=== PATIENT | female | born 1995 | race Caucasian/White ===

== ENCOUNTER 2021-03-06 18:52 | Emergency (ER) | payer MEDICAID, SELFPAY ==
--- NOTE | ~2021-03-06 | CT_ITS ---
EXAMINATION: CT ABDOMEN AND PELVIS WITHOUT CONTRAST CLINICAL INFORMATION: flank pain . COMPARISON: No pertinent prior studies are available for comparison. TECHNIQUE: Multidetector volumetric imaging was performed from the superior aspect of the liver through the pubic symphysis without contrast per renal stone protocol. Sagittal and coronal reformatted images were obtained on the technologist workstation. This CT examination was performed using dose optimization techniques as appropriate, variously including the following: *Automated exposure control *Adjustment of mA and/or kV according to patient size (this includes techniques or standardized protocols for targeted exams where dose is matched to indication/reason for exam; i.e. extremities or head) *Use of iterative reconstruction technique DLP: 514 mGy-cm. FINDINGS: LUNG BASES: The visualized lung bases are unremarkable. LIVER, GALLBLADDER, BILIARY TREE: The non-contrast liver is normal in size, shape, and attenuation. No focal hepatic lesion or biliary ductal dilatation is present. The gallbladder is unremarkable with no evidence of radiopaque gallstones, gallbladder wall thickening, or obvious pericholecystic inflammatory changes. PANCREAS: Unremarkable. SPLEEN: Unremarkable. ADRENAL GLANDS: Unremarkable. KIDNEYS AND URETERS: The kidneys are normal in size, shape, and attenuation. No hydronephrosis, hydroureter, or calculi seen. No perinephric stranding. BLADDER: Unremarkable. GASTROINTESTINAL TRACT: The small and large bowel are unremarkable. The appendix is nonvisualized and may be surgically absent. No focal inflammatory changes seen in the right lower quadrant. ABDOMINAL WALL: No significant hernia is appreciated. LYMPHOVASCULAR STRUCTURES: No lymphadenopathy. The aorta is unremarkable.. PELVIC VISCERA: Unremarkable. OSSEUS STRUCTURES: Unremarkable. CT/CT abdomen pelvis wo con IMPRESSION: No acute intra-abdominal process seen.
[2021-03-06 19:17] VITALS: BP 130/88; PULSE 73; RESP 18; TEMP 36.6; O2SAT 100; BMI 29.2
[2021-03-06 19:41] LABS: Basophils Absolute Auto 0.1 X10*3/uL (0.0-0.2); Basophils Percent Auto 0.9 % (0-2); Eosinophils Absolute Auto 0.2 X10*3/uL (0.0-0.4); Eosinophils Percent Auto 1.7 % (0-4); Hematocrit 40.5 % (37-47); Hemoglobin 13.6 g/dl (12.0-16.0); Imm Gran Abs Auto 0.06 X10*3/uL (0.00-0.03); Imm Gran Pct Auto 0.7 % (0.0-0.4); Lymphocytes Absolute Auto 3.3 X10*3/uL (1.2-4.9); Lymphocytes Percent Auto 37.6 % (20-40); MANUAL DIFF FLAG NO; Mean Corpuscular HGB Conc 33.6 g/dl (31.0-35.0); Mean Corpuscular Hemoglobin 30.8 pg (27.0-33.0); Mean Corpuscular Volume 91.8 fL (80-98); Mean Platelet Volume 8.7 fL (9.4-12.3); Monocytes Absolute Auto 0.7 X10*3/uL (0.1-1.2); Monocytes Percent Auto 8.1 % (2-11); Neutrophils Absolute Auto 4.4 X10*3/uL (2.0-8.3); Platelet Count 350 X10*3/uL (160-400); Red Blood Count 4.41 X10*6/uL (4.20-5.50); Red Cell Distribution Width 13.2 % (11.0-16.0); White Blood Count 8.7 X10*3/uL (4.8-10.8)
[2021-03-06 19:44] LABS: Glucose Urine UA NEG (NEG); Leukocyte Esterase Urine NEG (NEG); Nitrite Urine NEG (NEG); Specific Gravity - Urine >= 1.030 (1.005-1.025); Urine Blood NEG (NEG); Urine Ketones NEG (NEG); Urine Protein NEG (NEG-TRACE)
[2021-03-06 19:50] LABS: Appearance Urine CLEAR; Color Urine YELLOW
[2021-03-06 19:51] LABS: UPreg QC Valid YES; Urine Pregnancy NEGATIVE (NEGATIVE)
[2021-03-06 20:15] LABS: Anion Gap 13 (12-20); Blood Urea Nitrogen 9 mg/dL (9-16); Calcium 9.6 mg/dL (8.4-10.2); Carbon Dioxide 25 mmol/L (22-29); Chloride 102 mmol/L (96-108); Estimated Glomerular Filt Rate > 60; Glucose Random 91 mg/dL (60-115); Lipase 11 U/L (8-78); Potassium 3.7 mmol/L (3.3-5.1); Sodium 136 mmol/L (135-145)
--- NOTE | 2021-03-06 22:03 | ED_ITS ---
HPI - Abdominal Pain General Chief Complaint: Abdominal Pain Stated Complaint: back pain Source: patient Mode of arrival: ambulatory Limitations: no limitations History of Present Illness HPI narrative: 25-year-old female with no significant past medical history presents with 2 weeks of lower back pain, started on the right side and now is in the right lower quadrant and suprapubic area. She does state to have pain on intercourse but does not have any concerns regarding STI infections. She denies fevers, chills, nausea, vomiting, chest pain or pressure, palpitations, shortness of breath, shortness breath on exertion, dysuria, hematuria, diarrhea, constipation, melena, hematochezia, abnormal vaginal bleeding, assault, trauma and any other concerning symptoms. MD elicited complaint: abdominal pain and flank pain Pertinent past history: none Onset (ago): week(s) Pain Consistency: constant Location: RLQ, R flank and suprapubic Severity: moderate Pain scale (0-10): 7 Quality: cramping and aching Radiation: back Migration to: no migration Exacerbating factors: movement and other ([place]) Relieving factors: nothing Associated symptoms: denies other symptoms Related Data Patient : No Previous Rx's Medication Instructions Recorded fluconazole [Diflucan] 150 mg PO Q3D #2 tab 03/07/21 Allergies Allergy/AdvReac Type Severity Reaction Status Date / Time ibuprofen [From ADVIL] Allergy Unknown RASH Verified 03/06/21 19:17 sulfamethoxazole Allergy Unknown RASH Verified 03/06/21 19:17 [From SEPTRA] trimethoprim [From SEPTRA] Allergy Unknown RASH Verified 03/06/21 19:17 Advil Allergy Unknown Hives Uncoded 12/25/17 00:00 Zeptra Allergy Unknown Hives Uncoded 12/25/17 00:00 Review of Systems Review of Systems Constitutional: No Fever, No Chills ENT/Mouth: No Ear Pain, No Hoarseness, No sore throat Eyes: No Eye Pain, No Swelling, No Redness, No Foreign Body Cardiovascular: No Chest Pain, No SOB Respiratory: No Cough, No Dyspnea Gastrointestinal: Positive flank pain, positive right lower quadrant and suprapubic abdominal pain, No Nausea, No Vomiting, No Diarrhea Genitourinary: Positive pain on intercourse, No Dysuria, No Hematuria Musculoskeletal: positive lower back pain, No Myalgias, No Joint Swelling Skin: No Skin lacerations, No rash Neuro: No Weakness, No Numbness, No Paresthesias, No Loss of Consciousness, No Dizziness, No Headache Psych: No Anxiety/Panic, No Depression Heme/Lymph: no easy bruising, no Lymphadenopathy Endocrine: No Polyuria, No Polydipsia Yes all other systems are reviewed and are negative Physical Exam Vital Signs: Vital Signs: Last Vital Signs Temp 98.1 F 03/06/21 22:04 Pulse 75 03/06/21 22:04 Resp 16 03/06/21 22:04 BP 124/77 03/06/21 22:04 Pulse Ox 100 03/06/21 22:04 Body Mass Index 29.2 Appearance: Alert. Oriented X3. No acute distress. Head: Normal external exam. Normocephalic. Atraumatic. No Asencio signs noted. No raccoon eyes noted Eyes: PERRLA. EOMI. Conjunctiva and sclera normal. Eyelids normal. ENT: TM's Normal. Pharynx normal. Uvula midline. Moist mucous membranes. No trismus noted. No drooling noted. No muffled voice noted. Neck: Normal inspection. Neck supple. No adenopathy. Thyroid Normal. No meningeal signs. No neck mass noted. CVS: Normal heart rate and rhythm. Heart sound normal. No murmurs noted. Pulses equal to all extremities. Respiratory: No respiratory distress. Painless inspiration. Breath sounds normal. No wheezes/rales/rhonchi noted. Chest nontender. No accessory muscle usage noted or decreased air movement noted. Abdomen: Soft and tender to palpation to suprapubic and right lower quadrant. Bowel sounds normal in all 4 quadrants. No distention noted. No organomegaly noted. No visible injury noted. Back: No CVA tenderness. Full range of motion noted. Skin: Skin warm and dry. Normal skin color. Normal skin turgor. No rashes/lesions/lacerations noted. Extremities: No lower extremity edema. Extremities exhibit normal range of motion. Extremities nontender. Neuro: cranial nerves 2-12 intact, no focal neural deficits, strength 5/5 to all extremities, No motor deficit. No sensory deficit. Reflexes normal. : External Female Exam: normal external appearance Speculum Exam - Vagina: normal appearance of the vagina, normal palpation and abnormal vaginal discharge white and caseous Speculum Exam - Cervix: normal appearance of the cervix, normal palpation, Cervical os closed and Abnormal cervical discharge present white Bimanual exam- vagina & uterus: normal bimanual exam, normal palpation, uterine size normal and normal palpation Bimanual Exam- Adnexa, other: normal adnexae, no masses and No adnexal tenderness Course Course Course Narrative: 25-year-old female presents with 2 weeks of lower back pain, a week of right lower quadrant and suprapubic abdominal pain, and dyspareunia. CBC and Chem 7 are unremarkable, however patient's abdominal exam is positive for Anne sign. Will order CT abdomen and pelvis to rule out acute abdomen, renal stones. CT abdomen pelvis is negative, pelvic exam highly indicative of candidiasis. At this time patient defers STI treatments, will return if test results come back positive. Risks and benefits discussed. Patient verbalized understanding of and agrees to plan of care discharge home. MDM - Abdominal Pain Lab Data Result diagrams: 03/06/21 19:32 03/06/21 19:32 Labs: Lab Results 03/06/21 03/06/21 03/06/21 Range/Units 19:32 19:32 19:32 WBC 8.7 (4.8-10.8) X10*3/uL RBC 4.41 (4.20-5.50) X10*6/uL Hgb 13.6 (12.0-16.0) g/dl Hct 40.5 (37-47) % MCV 91.8 (80-98) fL MCH 30.8 (27.0-33.0) pg MCHC 33.6 (31.0-35.0) g/dl RDW 13.2 (11.0-16.0) % Plt Count 350 (160-400) X10*3/uL MPV 8.7 L (9.4-12.3) fL Immature Gran % (Auto) 0.7 H (0.0-0.4) % Neut % (Auto) 51.0 (45-73) % Lymph % (Auto) 37.6 (20-40) % [place] % (Auto) 8.1 (2-11) % Eos % (Auto) 1.7 (0-4) % Baso % (Auto) 0.9 (0-2) % Lymph # (Auto) 3.3 (1.2-4.9) X10*3/uL [place] # (Auto) 0.7 (0.1-1.2) X10*3/uL Eos # (Auto) 0.2 (0.0-0.4) X10*3/uL Baso # (Auto) 0.1 (0.0-0.2) X10*3/uL Abs Immat Gran (auto) 0.06 H (0.00-0.03) X10*3/uL Absolute Neuts (auto) 4.4 (2.0-8.3) X10*3/uL Absolute Nucleated RBC 0.000 (0.0-0.012) X10*3/uL Nucleated RBC % (auto) 0.0 (0.0-0.2) /100WBC Sodium 136 (135-145) mmol/L Potassium 3.7 (3.3-5.1) mmol/L Chloride 102 (96-108) mmol/L Carbon Dioxide 25 (22-29) mmol/L Anion Gap 13 (12-20) BUN 9 (9-16) mg/dL Creatinine 0.75 (0.5-1.4) mg/dL Estim Creat Clear Calc 106.0 Estimated GFR > 60 Random Glucose 91 (60-115) mg/dL Calcium 9.6 (8.4-10.2) mg/dL Lipase 11 (8-78) U/L Urine Color YELLOW Urine Appearance CLEAR Urine pH 6.0 (5.0-8.0) Ur Specific [place] >= 1.030 H (1.005-1.025) Urine Protein NEG (NEG-TRACE) MG/DL Urine Glucose (UA) NEG (NEG) MG/DL Urine Ketones NEG (NEG) MG/DL Urine Blood NEG (NEG) Urine Nitrite NEG (NEG) Ur Leukocyte Esterase NEG (NEG) Urine Test (NEGATIVE) 03/06/21 Range/Units 19:32 WBC (4.8-10.8) X10*3/uL RBC (4.20-5.50) X10*6/uL Hgb (12.0-16.0) g/dl Hct (37-47) % MCV (80-98) fL MCH (27.0-33.0) pg MCHC (31.0-35.0) g/dl RDW (11.0-16.0) % Plt Count (160-400) X10*3/uL MPV (9.4-12.3) fL Immature Gran % (Auto) (0.0-0.4) % Neut % (Auto) (45-73) % Lymph % (Auto) (20-40) % [place] % (Auto) (2-11) % Eos % (Auto) (0-4) % Baso % (Auto) (0-2) % Lymph # (Auto) (1.2-4.9) X10*3/uL [place] # (Auto) (0.1-1.2) X10*3/uL Eos # (Auto) (0.0-0.4) X10*3/uL Baso # (Auto) (0.0-0.2) X10*3/uL Abs Immat Gran (auto) (0.00-0.03) X10*3/uL Absolute Neuts (auto) (2.0-8.3) X10*3/uL Absolute Nucleated RBC (0.0-0.012) X10*3/uL Nucleated RBC % (auto) (0.0-0.2) /100WBC Sodium (135-145) mmol/L Potassium (3.3-5.1) mmol/L Chloride (96-108) mmol/L Carbon Dioxide (22-29) mmol/L Anion Gap (12-20) BUN (9-16) mg/dL Creatinine (0.5-1.4) mg/dL Estim Creat Clear Calc Estimated GFR Random Glucose (60-115) mg/dL Calcium (8.4-10.2) mg/dL Lipase (8-78) U/L Urine Color Urine Appearance Urine pH (5.0-8.0) Ur Specific [place] (1.005-1.025) Urine Protein (NEG-TRACE) MG/DL Urine Glucose (UA) (NEG) MG/DL Urine Ketones (NEG) MG/DL Urine Blood (NEG) Urine Nitrite (NEG) Ur Leukocyte Esterase (NEG) Urine Test NEGATIVE (NEGATIVE) Discharge Plan Discharge Clinical Impression: Dyspareunia Abdominal pain Qualifiers: Abdominal location: generalized Qualified Code(s): R10.84 - Generalized ab dominal pain Back pain Qualifiers: Back pain location: low back pain Chronicity: acute Back pain laterality: right Sciatica presence: without sciatica Qualified Code(s): M54.5 - Low back pain Patient Disposition: Home, Self-Care Instructions: Yeast Infection (ED), Abdominal Pain (ED), Back Pain (ED) Additional Instructions: You were evaluated for back, flank and abdominal pain and reported pain on intercourse. CT scan of abdomen pelvis are negative for acute findings requiring emergent intervention. Pelvic exam indicates candidiasis, which is a yeast infection. We treated you with Diflucan in the emergency department. Barrett bailey repeat the dose of Diflucan in 3 days. Please use Tylenol and Motrin as needed for pain management. 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 Thank you for choosing this emergency department for evaluation. Please follow-up with primary care physician as needed. Return to the emergency department for any new, concerning, or worsening symptoms. Prescriptions: New fluconazole [Diflucan] 150 mg tablet 150 mg PO Q3D Qty: 2 RF: 0 Stand Alone Forms: Work/School Release Interventions: ED Discharge Assessment Last Done: 03/07/21 00:58 Discharge Date/Time: 03/07/21 00:59 [facility] Past Medical History Attestation statement: The following information was validated with the patient. Source: old records reviewed Medical History Arrhythmia Social History Social History Alcohol intake: never Smoking Status: Unknown if ever smoked Use of substances other than those prescribed or required for medical reasons: No Advance Directives: No Advance Directives Information Provided: Yes Patient : No
[2021-03-06 22:04] VITALS: BP 124/77; PULSE 75; RESP 16; TEMP 36.7; O2SAT 100
[2021-03-07] MEDS: oxyCODONE HCl Immed Release 5 MG TABLET PO (00:48)
[2021-03-07] MEDS: ondansetron HCL 4 MG/2 ML VIAL IVPUSH (00:48)
[2021-03-07] MEDS: Fluconazole 150 MG TABLET PO (00:51)
[2021-03-07 09:58] LABS: CT PCR NOT DETECTED (Not Detect.)
[2021-03-07 09:59] LABS: NG PCR NOT DETECTED (Not Detect.)
[2021-03-07 11:26] LABS: BV Int Neg Control Negative (Negative); BV Int Pos Control Positive (Positive)
== END 2021-03-07 00:59 | disposition home or self-care (01) ==
PROVIDERS: Nurse Practitioner Family; Emergency Provider Emergency Medicine; PCP Internal Medicine
DX: N76.0 Acute vaginitis (principal); N94.10 Unspecified dyspareunia; R10.84 Generalized abdominal pain; M54.5 Low back pain
CPT/HCPCS: 36415; 74176; 80048; 81003; 81025; 83690; 85025; 87480; 87491; 87510; 87591; 87660; 96374; 99284; 99285; J2405

== ENCOUNTER 2023-06-10 17:54 | Outpatient (REF) | payer MEDICAID, SELFPAY ==
[2023-06-10 20:36] LABS: Influenza A PCR NEGATIVE (Negative); Influenza B PCR NEGATIVE (Negative); Resp Syncy Virus RNA Qual PCR NEGATIVE (Negative); SARS COV2 PCR INHOUSE NEGATIVE (Negative)
== END 2023-06-10 17:55 | disposition home or self-care (01) ==
LOC: HO.HHCLNP 17:54
PROVIDERS: Visit Provider Emergency Medicine
DX: J06.9 Acute upper respiratory infection, unspecified (principal); Z20.822 Contact with and (suspected) exposure to COVID-19
CPT/HCPCS: 0241U; 87070

== ENCOUNTER 2024-03-14 23:58 | Emergency (ER) | payer OTHER, SELFPAY ==
[2024-03-15 00:20] VITALS: BP 119/68; PULSE 80; RESP 18; TEMP 36.8; O2SAT 99; BMI 31.5
[2024-03-15 01:23] LABS: Appearance Urine Cloudy; Color Urine Yellow; Glucose Urine UA Negative (Negative); Leukocyte Esterase Urine Negative (Negative); Nitrite Urine Negative (Negative); PH 6.5 (5.0-9.0); Specific Gravity - Urine 1.025 (1.005-1.025); Urine Blood Negative (Negative); Urine Ketones Negative (Negative); Urine Protein Negative (Neg-Trace)
[2024-03-15 01:25] LABS: Bacteria Urine 1+ (None Seen); Hyaline Casts Urine 0-2 /LPF (0-2); RBC Urine 0-2 /HPF (0-2); WBC Urine 0-5 /HPF (0-5)
--- NOTE | 2024-03-15 05:45 | ED.BACK ---
HPI - Back Pain/Injury General Chief Complaint: Back Pain/Injury Stated Complaint: muscle spasms Time Seen by Provider: 03/15/24 05:33 Source: patient Mode of arrival: ambulatory Limitations: no limitations History of Present Illness ED Provider: Dr. Mustapha Nolasco HPI Narrative: 28-year-old female who presents emergency department for evaluation of right lower back pain. 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 She states that last night while she was sitting down at the dining room table she straightened her back and felt severe pain in her right lower back. She states that the pain is been constant since onset. She describes it as a sharp, spasm like pain which is worse with movement. The pain was 10/10 at its worst. The pain did not radiate to her abdomen or down her legs. She denied numbness or weakness. She denied frequency, urgency or dysuria. She does not have a history of back injury. She states she can not take NSAIDs since they cause a rash. She did take Tylenol with no relief of her discomfort. Related Data Previous Rx's ?Medication ?Instructions ?Recorded fluconazole 150 mg tablet 150 mg PO Q3D 2 doses #2 tabs 03/07/21 (Diflucan) metronidazole 500 mg tablet 500 mg PO BID 7 days #14 tabs 03/09/21 (Flagyl) cyclobenzaprine 10 mg tablet 10 mg PO TID PRN muscle pain or 03/15/24 spasm #20 tabs morphine 15 mg tablet,extended 15 mg PO Q6H PRN pain #10 tabs 03/15/24 release Allergies Allergy/AdvReac Type Severity Reaction Status Date / Time ibuprofen [From ADVIL] Allergy Unknown RASH Verified 03/15/24 00:24 sulfamethoxazole Allergy Unknown RASH Verified 03/15/24 00:24 [From SEPTRA] trimethoprim [From SEPTRA] Allergy Unknown RASH Verified 03/15/24 00:24 Advil Allergy Unknown Hives Uncoded 06/19/21 08:37 Zeptra Allergy Unknown Hives Uncoded 06/19/21 08:37 Review of Systems Review of Systems: Yes all other systems are reviewed and are negative [facility] Past Medical History [facility] Narrative: Social history: She denies tobacco use. She rarely drinks alcohol. She denies drug use. She is currently in the [employer]. Medical History Arrhythmia Social History Social History (System 06/19/21 @ 08:37 by Samantha Delarosa) Alcohol intake: never Smoked in Last 30 Days: No Use of substances other than those prescribed or required for medical reasons: No Advance Directives: No Do you have a plan to hurt others: No Plan Physical Exam Vital Signs: Vital Signs: Last Vital Signs Temp 98.0 F 03/15/24 05:48 Pulse 90 03/15/24 05:48 Resp 16 03/15/24 07:10 BP 109/71 03/15/24 05:48 Pulse Ox 100 03/15/24 05:48 O2 Del Method Room Air 03/15/24 05:48 BMI result Body Mass Index 31.5 Vital signs were normal Exam: General: Awake, appears to be in moderate distress secondary to her pain, patient was lying on her left side but can not move 2nd to pain and spasm in the right lower back. Head: Normocephalic, atraumatic EENT: PERRL, Lids normal, sclera normal, conjunctiva normal, nose normal , ears normal, throat without erythema or exudates Neck: Supple, no adenopathy Lung: breath sounds symmetric, no wheezing, rales or rhonchi Chest: symmetric movement, nontender Heart: regular rate and rhythm, normal S1, S2 no murmurs or rubs Abdomen: soft, non-tender, nondistended, normal bowel sounds Back: Patient has increased back pain with right straight leg raise but no pain with left straight leg raise. She has significant tenderness palpation of her paraspinal muscles in the right lumbar sacral area with spasm of these muscles. She has no point vertebral tenderness. Extremities: no deformities, moves all extremities symmetrically Neuro: Awake, alert, oriented, normal speech, cranial nerves intact, moves all extremities symmetrically Psych: Pleasant, cooperative Medications Administered Discontinued Medications Generic Name Dose Route Start Last Admin Trade Name Freq PRN Reason Stop Dose Admin Acetaminophen 975 mg 03/15/24 05:45 03/15/24 05:57 Acetaminophen 325 Mg Tablet PO 03/15/24 05:46 975 mg ONCE STA Administration Cyclobenzaprine HCl 10 mg 03/15/24 05:45 03/15/24 05:57 Cyclobenzaprine Hcl 10 Mg Tablet PO 03/15/24 05:46 10 mg ONCE ONE Administration Morphine Sulfate 4 mg 03/15/24 05:45 03/15/24 05:57 Morphine Sulfate 4 Mg/Ml Cartridge IVPUSH 03/15/24 05:46 4 mg ONCE STA Administration Protocol Morphine Sulfate 4 mg 03/15/24 07:02 03/15/24 07:10 Morphine Sulfate 4 Mg/Ml Cartridge IVPUSH 03/15/24 07:03 4 mg ONCE STA Administration Protocol Medical Decision Making Medical Decision Making [facility] Narrative: 28-year-old female who presents emergency department for evaluation of right lower back pain. 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 She states that last night while she was sitting down at the dining room table she straightened her back and felt severe pain, 10/10 in her right lower back. Pain was worse with movement. Pain did not radiate to her abdomen, lower extremities, she had no numbness or weakness. Vital signs were normal. Exam revealed no vertebral tenderness but she did have significant tenderness and spasm of the right paraspinal muscles in the lumbar sacral region. Differential diagnosis: ?Includes but is not limited to muscle strain, muscle spasm, disc disease, sciatica, kidney stone Course: 07:09 Patient's physical examination is consistent with musculoskeletal strain of the lumbar sacral paraspinal muscles with spasm of these muscles. Tylenol 975 mg orally, Flexeril 10 mg orally and morphine 4 mg IV. The patient's pain went from 10/10 to 8/10 comfortable and she is able to move on the stretcher Patient was given a 2nd dose of morphine 4 mg IV. Patient will be discharged home prescriptions for Flexeril 10 mg 3 times a day as needed for spasm and morphine 15 mg every 6 hours as needed for pain not relieved by Tylenol. She was given printed and verbal instructions discharged home. She was given a note to stay home from the [employer] for 3 days My independent interpretation patient's laboratory evaluation is as follows: Urinalysis revealed cloudy urine. Microscopic revealed 0-2 RBCs, 0-5 WBCs, 6-10 squamous cells and 1+ bacteria -this is a non clean catch specimen Admission/Observation Consideration of admission/observation: Escalation of care including admission/observation considered Lab Data [facility] Lab Attestation statement: I reviewed the patient's lab results. Labs: Lab Results 03/15/24 Range/Units 01:16 Urine Color Yellow Urine Appearance Cloudy Urine pH 6.5 (5.0-9.0) Ur Specific [place] 1.025 (1.005-1.025) Urine Protein Negative (Neg-Trace) mg/dL Urine Glucose (UA) Negative (Negative) mg/dL Urine Ketones Negative (Negative) mg/dL Urine Blood Negative (Negative) Urine Nitrite Negative (Negative) Ur Leukocyte Esterase Negative (Negative) Urine RBC 0-2 (0-2) /HPF Urine WBC 0-5 (0-5) /HPF Ur Squamous Epith Cells 6-10 (0-2) /HPF Urine Bacteria 1+ (None Seen) Hyaline Casts 0-2 (0-2) /LPF Independent Historian Clinical information obtained from an independent historian. History obtained from or confirmed by: Parent Prescription Management I considered prescription management with: Pain Medication and Other (Anti muscle spasm medication) Discharge Plan Discharge Clinical Impression: Strain of lumbar region Qualifiers: Encounter type: initial encounter Qualified Code(s): S39.012A - Strain of muscle, fascia and tendon of lower back, initial encounter Patient Disposition: Still a Patient Instructions: Muscle Strain (ED), Acute Low Back Pain (ED) Additional Instructions: Your urine test was negative for urine infection Your examination is consistent with muscle sprain of the muscles in the lumbar sacral area of your lower back. You also have spasm of these muscles. Take Tylenol (acetaminophen) 2 pills every 6 hours as needed for pain. For pain not relieved by ibuprofen or Tylenol take morphine 15 mg pills, 1 pill every 6 hours as needed for pain. This medication will make you sleepy, do not drive or work while taking this medication. Morphine is a narcotic medication and can be addicting. If you are concerned about addiction you can ask the pharmacist for less pills or do not get this prescription filled. Apply ice for 15 minutes 4 to 6 times a day to your lower back where your having the pain. Do this for 2-3 days and after 3 days you can use a heating pad on low. Follow-up with your doctor in 2 days. Please return to the emergency department if your symptoms get worse or if you develop any symptoms that are concerning to you. Please see the work note. Prescriptions: New cyclobenzaprine 10 mg tablet 10 mg PO TID PRN (Reason: muscle pain or spasm) Qty: 20 0RF morphine 15 mg tablet extended release 15 mg PO Q6H PRN (Reason: pain) Qty: 10 0RF Rx Instructions: Partial Fill upon patient request. No Action fluconazole [Diflucan] 150 mg tablet 150 mg PO Q3D Qty: 2 0RF Rx Instructions: may repeat second dose 72 hrs after first dose if symptoms persist metronidazole [Flagyl] 500 mg tablet 500 mg PO BID 7 Days Qty: 14 0RF Print Language: Citizen Of [place]
[2024-03-15 05:48] VITALS: BP 109/71; PULSE 90; RESP 18; TEMP 36.7; O2SAT 100
--- NOTE | 2024-03-15 05:52 | PC.NURSE ---
Pt ca&ox4, no signs of distress. Pt reports 10/10 back pain. Pts family at bedside. Plan of care ongoing.
[2024-03-15] MEDS: Acetaminophen 325 MG TABLET 975 MG PO (05:57)
[2024-03-15] MEDS: Morphine Sulfate 4 MG/ML CARTRIDGE IVPUSH ×2 (05:57→07:10)
[2024-03-15] MEDS: Cyclobenzaprine HCl 10 MG TABLET PO (05:57)
--- NOTE | 2024-03-15 06:02 | PC.NURSE ---
Pt medicated per dec. Pt confirmed allergies. Plan of care ongoing.
[2024-03-15 07:10] VITALS: RESP 16
--- NOTE | 2024-03-15 07:17 | PC.NURSE ---
Pt reports feeling overall more comfortable.
[2024-03-15 08:05] VITALS: BP 106/67; PULSE 85; RESP 16; TEMP 36.6; O2SAT 98
[2024-03-15 08:06] VITALS: BP 106/67; PULSE 85; RESP 16; TEMP 36.6; O2SAT 98
== END 2024-03-15 08:08 | disposition still patient (30) ==
PROVIDERS: Emergency Provider Emergency Medicine Emergency Medical Services; PCP Internal Medicine
DX: S39.012A Strain of muscle, fascia and tendon of lower back, initial encounter (principal); X58.XXXA Exposure to other specified factors, initial encounter; Y93.9 Activity, unspecified; Y92.9 Unspecified place or not applicable; Y99.9 Unspecified external cause status
CPT/HCPCS: 81001; 96374; 96376; 99284; J2270

== ENCOUNTER 2024-03-29 16:57 | Outpatient (REF) | payer SELFPAY ==
--- NOTE | ~2024-03-29 | XR_ITS ---
EXAMINATION: XR LUMBOSACRAL SPINE CLINICAL INFORMATION: Patient with worsening low back pain over months. COMPARISON: None available. TECHNIQUE: Three views of the lumbosacral spine. FINDINGS: The bone mineralization is normal. Minimal levoscoliosis of the lumbar spine. Facet arthritis in the lower lumbar spine. Moderate degenerative changes with loss of disc space height at L5-S1. Bilateral sacroiliac joints are maintained. XR/XR lumbar spine 2-3V IMPRESSION: Moderate degenerative disc disease at L5-S1.
== END 2024-03-29 16:58 | disposition home or self-care (01) ==
LOC: HO.XRAY 16:57
PROVIDERS: PCP Internal Medicine; Visit Provider Nurse Practitioner Family
DX: M54.50 Low back pain, unspecified (principal)
CPT/HCPCS: 72100

== ENCOUNTER 2024-07-12 15:41 | Outpatient (REF) | payer SELFPAY ==
[2024-07-12 18:16] LABS: MANUAL DIFF FLAG NO
[2024-07-12 18:30] LABS: Basophils Absolute Auto 0.1 X10*3/uL (0.0-0.2); Basophils Percent Auto 0.8 % (0-2); Eosinophils Absolute Auto 0.1 X10*3/uL (0.0-0.4); Eosinophils Percent Auto 1.4 % (0-4); Hematocrit 39.7 % (37.0-47.0); Hemoglobin 13.3 g/dl (12.0-16.0); Imm Gran Abs Auto 0.04 X10*3/uL (0.00-0.03); Imm Gran Pct Auto 0.5 % (0.0-0.4); Lymphocytes Absolute Auto 2.3 X10*3/uL (1.2-4.9); Lymphocytes Percent Auto 28.9 % (20-40); Mean Corpuscular HGB Conc 33.5 g/dl (31.0-35.0); Mean Corpuscular Hemoglobin 30.9 pg (27.0-33.0); Mean Corpuscular Volume 92.1 fL (80.0-98.0); Mean Platelet Volume 9.3 fL (9.4-12.3); Monocytes Absolute Auto 0.7 X10*3/uL (0.1-1.2); Monocytes Percent Auto 8.4 % (2-11); Neutrophils Absolute Auto 4.7 x10*3/uL (2.0-8.3); Platelet Count 362 X10*3/uL (160-400); Red Blood Count 4.31 X10*6/uL (4.20-5.50); Red Cell Distribution Width 13.1 % (11.0-16.0); White Blood Count 7.9 X10*3/uL (4.8-10.8)
[2024-07-12 18:42] LABS: Alanine Aminotransferase 18 U/L (0-31); Albumin Level 4.4 g/dL (3.5-5.0); Alkaline Phosphatase 71 U/L (39-117); Anion Gap 12 (12-20); Aspartate Amino Transferase 20 U/L (5-31); Bilirubin Total 0.5 mg/dL (0.0-1.0); Blood Urea Nitrogen 8 mg/dL (9-16); Calcium 9.5 mg/dL (8.4-10.2); Carbon Dioxide 25 mmol/L (22-29); Chloride 104 mmol/L (96-108); Cholesterol 184 mg/dL (<200); Estimated Glomerular Filt Rate > 60; Glucose Random 95 mg/dL (60-115); HDL Cholesterol 72 mg/dL (>40); LDL Cholesterol Calculated 98 mg/dL (<100); Potassium 3.8 mmol/L (3.3-5.1); Sodium 137 mmol/L (135-145); Total Protein 7.5 g/dL (6.5-8.0); Triglycerides 72 mg/dL (<150)
[2024-07-12 18:59] LABS: TSH reflex Free T4 1.03 uIU/mL (0.32-4.0); Vitamin D 25-OH Total 27.6 ng/mL (>30)
[2024-07-12 20:24] LABS: Reflex LDLD? No
[2024-07-13 07:41] LABS: Estimated Average Glucose 97 mg/dL
[2024-07-13 08:11] LABS: HIV AB/AG Nonreactive (Nonreactive); HIV Num 1 0.06 S/CO (0.00-0.99)
[2024-07-13 15:13] LABS: RPR Rapid Plasma Reagin NON-REACTIVE (NON-REACTIVE)
[2024-07-13 15:48] LABS: HCV Log PCR <1.18 NOT DETECTED Log IU/mL (NOT DETECTED); HepC Viral Load <15 NOT DETECTED IU/mL (NOT DETECTED)
== END 2024-07-12 15:42 | disposition home or self-care (01) ==
LOC: HO.HHCL 15:41
PROVIDERS: Visit Provider Internal Medicine
DX: Z00.00 Encounter for general adult medical examination without abnormal findings (principal); Z13.1 Encounter for screening for diabetes mellitus
CPT/HCPCS: 36415; 80053; 80061; 82306; 83036; 84443; 85025; 86592; 87389; 87522